=== PATIENT | female | born 1955 | race Caucasian/White ===

== ENCOUNTER 2022-01-17 20:26 | Emergency (ER) | payer OTHER, MEDICAID ==
[~2022-01-17] VITALS: Ht 162.6 cm; Wt 48.1 kg
[2022-01-17 20:35] VITALS: BP 106/67
--- NOTE | 2022-01-17 20:35 | NUR ---
TO BED AMBULATORY
--- NOTE | 2022-01-17 20:49 | NUR ---
67 YO/F BIB SELF W C/O LOWER ABDOMINAL/PELVIC PAIN PRESSURE LIKE 6/10 RADIATING TO BACK X2 DAYS, +LUMP NOTICED TONIGHT WHILE PULLING UP PAJAMA PANTS, +N/V. FIXED LUMP NOTED TO L SIDE PELVIC/GROIN AREA, TENDER. PT DENIES ANY FEVER/CHILLS/DIARRHEA OR URINARY SYMTPOMS. PT SITTIN GIN BED LOCKED IN LOWEST POSITION. BREATHING EVEN AND UNLABORED. BNAD NOTED, WILL CONTINUE TO MONITOR. PMH: COPD ALLERGIES: PENICILLINS
--- NOTE | 2022-01-17 21:03 | NUR ---
Dr. Mcwilliams examining patient.
[2022-01-17] MEDS ORDERED: NACL 0.9% 1,000 ML IV ONE (21:20)
[2022-01-17] MEDS ORDERED: ONDANSETRON 4 MG/2 ML VIAL IVP ONE (21:20)
[2022-01-17] MEDS ORDERED: MORPHINE SULFATE 2 MG/ML SYR IVP ONE (21:20)
[2022-01-17 21:29] LABS: BASOPHILS % (AUTO) 0.3 % (0.0-2.0); EOSINOPHILS % (AUTO) 0.5 % (0.0-4.0); HEMATOCRIT 43.6 % (36-48); HEMOGLOBIN 15.1 g/dL (12.0-16.0); LYMPHOCYTES # (AUTO) 1.5 K/uL (2.5-16.5); LYMPHOCYTES % (AUTO) 19.2 % (20.5-51.1); MEAN CORPUSCULAR HEMOGLOBIN 33 pg (27-31); MEAN CORPUSCULAR HGB CONC 35 g/dL (33-37); MEAN CORPUSCULAR VOLUME 96.4 fL (80-94); MONOCYTES # (AUTO) 0.6 K/uL (0.8-1.0); MONOCYTES % (AUTO) 7.9 % (1.7-9.3); NEUTROPHILS # (AUTO) 5.8 K/uL (1.8-7.7); NEUTROPHILS % (AUTO) 72.1 % (42.2-75.2); PLATELET COUNT (AUTO) 219 K/uL (140-450); RED BLOOD CELL COUNT(AUTO) 4.53 MIL/uL (4.20-5.40); RED CELL DISTRIBUTION WIDTH 12.4 % (11.6-13.7)
[2022-01-17 21:44] LABS: ALBUMIN 4.5 g/dL (3.4-5.0); ANION GAP 11.4 (8-16); CARBON DIOXIDE 31.4 mmol/L (21-32); CREATININE 0.7 mg/dL (0.6-1.3); POTASSIUM 3.8 mmol/L (3.5-5.1); TOTAL BILIRUBIN 0.4 mg/dL (0.0-1.0)
--- NOTE | 2022-01-17 21:48 | NUR ---
PT DSAT TO 88% PT PLACED ON 2L NC W 94% O2 SAT.
--- NOTE | 2022-01-17 22:20 | NUR ---
PT RETURN FROM CT
--- NOTE | 2022-01-17 22:22 | NUR ---
Dr. Chelsy Eastman at patient bedside
--- NOTE | 2022-01-17 22:53 | NUR ---
PT REPORTS FEELING ALOT BETTER, PAIN IMPROVED.
[2022-01-18] MEDS ORDERED: MAGNESIUM CITRATE 300 ML BTL PO ONE (01:20)
[2022-01-18 01:33] VITALS: BP 132/55
--- NOTE | 2022-01-18 01:33 | NUR ---
Patient discharged with v/s stable. Written and verbal after care instructions given and explained. Patient verbalized understanding. Ambulatory with steady gait. All questions addressed prior to discharge. Advised to follow up with PMD.
== END 2022-01-18 01:33 | disposition home or self-care (01) ==
LOC: MED 20:26
DX: R10.32 Left lower quadrant pain (principal); R11.10 Vomiting, unspecified; J44.9 Chronic obstructive pulmonary disease, unspecified; F17.210 Nicotine dependence, cigarettes, uncomplicated; Z88.0 Allergy status to penicillin
CPT/HCPCS: 36415; 74177; 80053; 83605; 83690; 85025; 96361; 96374; 96375; 99285; J2270; J2405; J7030; Q9967